=== PATIENT | male | born 1965 | race African-American/Black ===

== ENCOUNTER 2017-08-27 16:40 | Emergency (ER) | payer OTHER ==
[~2017-08-27] VITALS: Ht 177.8 cm; Wt 117.9 kg
[2017-08-27 17:15] LABS: ABSOLUTE NEUTROPHILS 2.4 thou/uL (1.4-8.2); EOSINOPHILS 3.4 % (0.0-3.0); HEMATOCRIT 48.9 % (42.0-52.0); HEMOGLOBIN 17.2 gm/dL (14.0-18.0); LYMPHOCYTES 39.9 % (24.0-44.0); MCH 31.5 pg (26.0-34.0); MCHC 35.3 g/dL (28.0-37.0); MCV 89.3 fL (80.0-100.0); MONOCYTES 5.8 % (1.0-8.0); PLATELET COUNT 232 thou/uL (150-400); POLYS 49.9 % (36.0-66.0); RBC 5.47 mil/uL (4.50-6.00); RDW 13.8 % (10.5-14.5); WBC 4.8 thou/uL (4.0-11.0)
[2017-08-27 18:14] LABS: ALBUMIN 4.5 g/dL (3.4-5.0); CALCIUM 9.7 mg/dL (8.5-10.1); CREATININE 1.1 mg/dL (0.7-1.3); MAGNESIUM 1.9 mg/dL (1.8-2.4); TOTAL BILIRUBIN 0.7 mg/dL (<0.1-1.0); TOTAL PROTEIN 8.6 g/dL (6.4-8.2)
[2017-08-27 18:15] LABS: POTASSIUM 4.1 mmol/L (3.5-5.1)
[2017-08-27] MEDS ORDERED: HYDROCODONE-AP1 EAC6 PO (19:43)
[2017-08-27] MEDS ORDERED: LEVSIN0.125 MG PO (19:43)
[2017-08-27] MEDS ORDERED: REGLAN 10 MG TA10 MG PO (19:43)
== END 2017-08-27 19:51 | disposition home or self-care (01) ==
LOC: ER 16:40
PROVIDERS: Physician Assistant
DX: R10.84 Generalized abdominal pain (principal); R11.2 Nausea with vomiting, unspecified; R19.7 Diarrhea, unspecified; Z87.891 Personal history of nicotine dependence